=== PATIENT | female | born 1975 | race Caucasian/White ===

== ENCOUNTER 2021-03-30 14:38 | Emergency (ER) | payer SELFPAY ==
[2021-03-30 14:54] VITALS: BP 130/62; PULSE 76; RESP 20; TEMP 36.8; O2SAT 97
--- NOTE | 2021-03-30 15:44 | ED.BACK ---
HPI - Back Pain/Injury General Chief Complaint: Urogenital-Female Stated Complaint: UTI Time Seen by Provider: 03/30/21 15:34 Source: patient and RN notes reviewed Mode of arrival: ambulatory Limitations: no limitations History of Present Illness HPI Narrative: Patient presents today complaining of right flank pain x4 days. Denies injury or trauma. Reports pain radiates to her buttock when she is lying down. Denies numbness or tingling. Denies any loss of bowel or bladder control. Denies any urinary symptoms. She currently rates her pain 4/10 and has tried no medication for symptoms prior to arrival. MD elicited complaint: back pain Related Data Allergies Allergy/AdvReac Type Severity Reaction Status Date / Time No Known Allergies Allergy Verified 03/30/21 15:16 Review of Systems Review of Systems: CONSTITUTIONAL: Denies body aches, fever, chills, or sweats. EYES: Denies visual changes, redness, or discharge. ENT: Denies rhinorrhea, congestion, sore throat, or otalgia. CARDIOVASCULAR: Denies chest pain, palpitations, or edema. RESPIRATORY: Denies cough or dyspnea. GASTROINTESTINAL: Denies abdominal pain, nausea, vomiting, or diarrhea. Right flank pain GENITOURINARY: Denies dysuria or hematuria. SKIN: Denies rash, itching, or wounds. MUSCULOSKELETAL: Denies back pain, joint pain, or myalgia. NEUROLOGIC: Denies headache, numbness, tingling, or weakness. PSYCH: Denies depression or anxiety. PMFSH Social History Social History (Updated 03/30/21 @ 15:46 by Lizbeth Ramos, [facility], ) Smoking status: Current every day smoker Tobacco type: cigarettes Comments At time of signature, I have reviewed and agree with nursing past medical, surgical, social and family history unless otherwise noted. Please see nursing chart for further information. There is no relevant family history pertinent to the presenting complaint Exam Narrative: GENERAL: Well-appearing, well-nourished, and in no acute distress. HEAD: Normocephalic, atraumatic. EYES: EOMI. No redness or drainage. Conjunctivae normal. ENT: Mucous membranes pink and moist. NECK: Normal AROM. CHEST: No respiratory distress. MUSCULOSKELETAL: No bony tenderness of the thoracic or lumbar spine. Right lower lumbar paraspinal muscle tenderness. No SI joint tenderness. Distal sensation intact. Saddle sensation intact. Capillary refill normal. Posterior tibial pulses normal. Dorsiflexion and plantarflexion against resistance normal. EXTREMITIES: Normal range of motion. No edema. SKIN: Warm, dry, no rash. Capillary refill normal. Normal skin turgor. NEURO: No focal deficits. Alert and oriented x3. Gait steady. PSYCH: Normal affect. No signs of depression or anxiety. Course Vital Signs Vital signs: Vital Signs Temperature 98.3 F 03/30/21 14:54 Pulse Rate 76 03/30/21 14:54 Respiratory Rate 20 03/30/21 14:54 Blood Pressure 130/62 03/30/21 14:54 Pulse Oximetry 97 03/30/21 14:54 Temperature 98.3 F 03/30/21 14:54 Pulse Rate 76 03/30/21 14:54 Respiratory Rate 20 03/30/21 14:54 Blood Pressure 130/62 03/30/21 14:54 Pulse Oximetry 97 03/30/21 14:54 Reviewed. Pt has been instructed to follow up with her PCP regarding her elevated blood pressure today. MDM - Back Pain/Injury Differential Diagnosis Differential diagnosis: Likely lumbar radiculopathy, sciatica and strain of lumbar region Lab Data Attestation: I reviewed the patient's lab results. Labs: Urine Glucose Negative Reference Range: Negative Urine Bilirubin Negative Reference Range: Negative Urine Ketone Negative Reference Range: Negative Urine Specific [place] 1.025 Reference Range:1.001-1.035 Urin
== END 2021-03-30 15:55 | disposition home or self-care (01) ==
PROVIDERS: Emergency Provider Nurse Practitioner
DX: S39.012A Strain of muscle, fascia and tendon of lower back, initial encounter (principal); X58.XXXA Exposure to other specified factors, initial encounter; F17.210 Nicotine dependence, cigarettes, uncomplicated
CPT/HCPCS: 81003; 99213; G0463